=== PATIENT | female | born 1980 | race Caucasian/White ===

== ENCOUNTER 2017-02-17 20:16 | Emergency (ER) | payer BC ==
[2017-02-17 20:41] VITALS: BP 119/79
--- NOTE | 2017-02-17 21:10 | UC ---
Complaint Female HPI - HPI Summary HPI Summary: The patient comes in today for: 1. Lower back pain, dysuria: Onset: Yesterday. Palliative/provocative: Nothing makes the symptoms better or worse. Quality: Period cramps, aching of the lower back Region: Lower back pain. Severity: 7/10 Time: Constant. Associated symptoms: Fevers: None. Dysuria: "It just hurts to urinate." Urinary frequency: "a little." Urinary urgency: "I have this all the time--I had two kids." Unexpected vaginal discharge or bleeding: NOne. * - History Of Current Complaint Chief Complaint: UCGU Stated Complaint: URINARY Time Seen by Provider: 02/17/17 21:05 Hx Obtained From: Patient Hx Last Menstrual Period: 01/27/17 - Allergies/Home Medications Allergies/Adverse Reactions: Allergies Allergy/AdvReac Type Severity Reaction Status Date / Time No Known Allergies Allergy Verified 02/17/17 20:41 Home Medications: Home Medications NK [No Home Medications Reported] 02/17/17 [History Confirmed 02/17/17] PMH/Surg Hx/FS Hx/Imm Hx Previously Healthy: Yes - Surgical History Surgical History: None - Family History Known Family History: Positive: Hypertension Negative: Diabetes - Social History Occupation: Employed Full-time Alcohol Use: Weekly Alcohol Amount: weekends Substance Use Type: None Smoking Status (MU): Never Smoked Tobacco - Immunization History Most Recent Influenza Vaccination: Not the Season Review of Systems Constitutional: Negative Skin: Negative Eyes: Negative ENT: Negative Cardiovascular: Negative Gastrointestinal: Abdominal Pain Genitourinary: Dysuria All Other Systems Reviewed And Are Negative: Yes Physical Exam Triage Information Reviewed: Yes Appearance: Well-Appearing, Pain Distress - She sits favoring the right lower back/hip. However, she can more with no guarding or psychomotor slowing on the examination table. Vital Signs: Initial Vital Signs Temp 99.3 F 02/17/17 20:37 Pulse 74 02/17/17 20:37 Resp 02/17/17 20:37 BP 119/79 02/17/17 20:37 Pulse Ox 99 02/17/17 20:37 Vital Signs Reviewed: Yes Eyes: Positive: Conjunctiva Clear. Negative: Discharge ENT: Positive: Hearing grossly normal. Negative: Pharyngeal erythema, Nasal congestion, TM bulging, TM dull, TM red, Tonsillar swelling, Tonsillar exudate Dental: Negative: Gross Decay/Caries @, Dental Fracture @ Neck: Positive: Supple, Nontender, No Lymphadenopathy. Negative: Nuchal Rigidity Respiratory: Positive: Lungs clear, No respiratory distress, No accessory muscle use, Crackles, Wheezing Cardiovascular: Positive: RRR, No Murmur Abdomen Description: Positive: Nontender, No Organomegaly, Soft. Negative: CVA Tenderness (R), CVA Tenderness (L), Distended, Guarding Musculoskeletal: Positive: Strength Intact, ROM Intact, No Edema, Other: - She has not tenderness to palpation of the right or left paraspinal lumbar musculature. Neurological: Positive: Alert Psychological: Positive: Age Appropriate Behavior, Consolable. Negative: Normal Response To Family Skin: Negative: rashes, breakdown Complaint Female Dx - Course Course Of Treatment: Patient was told that I could not explain her lower back pain or lower urinary symptoms. She was told that figuring this out will take further investigation. She was told that we could do a pelvic exam. However, the patient stated that she only wanted to rule out a urinary tract infection. She did not want any more medical evaluation/testing to figure out what is the cause of her symptoms. - Differential Dx/Diagnosis Provider Diagnoses: lower back pain. Dysuria Discharge - Discharge Plan Condition: Stable Disposition: HOME Patient Education Materials: Low Back Strain (ED) Referrals: No Primary Care Phys,NOPCP [Primary Care Provider] - 1 Week (Please see your primary care provider as soon as you can for a repeat evaluation. If you get worse, please go to the ER. )
== END 2017-02-17 21:29 | disposition home or self-care (01) ==
LOC: UCCORT 20:16
DX: M54.5 Low back pain (principal); R30.0 Dysuria
CPT/HCPCS: 81003; 99211; G0463

== ENCOUNTER 2018-02-20 15:10 | Emergency (ER) | payer SELFPAY ==
--- NOTE | 2018-02-20 15:32 | UC ---
Complaint Female HPI - HPI Summary HPI Summary: 37 yo female presents with urinary urgency and cloudy urine since this morning. Later in the day today noticed willy blood in her urine. She does have a history of one kidney stone, but says that this feels nothing like that. Says that she has had a few UTIs in the past and her urine always gets bloody like this. No hx of cancer, hemolytic disease, or kidney issues. Denies fever, chills , abdominal pain, n/v/d/c, or vaginal symptoms. - History Of Current Complaint Hx Obtained From: Patient Hx Last Menstrual Period: 01/27/17 Onset/Duration: Sudden Onset Timing: Constant Severity Initially: Mild Severity Currently: Mild Pain Intensity: 4 Pain Scale Used: 0-10 Numeric <Mikey Billings - Last Filed: 02/20/18 15:53> <Jeff Vera - Last Filed: 02/20/18 16:40> - History Of Current Complaint Stated Complaint: URINARY Time Seen by Provider: 02/20/18 15:31 - Allergies/Home Medications Allergies/Adverse Reactions: Allergies Allergy/AdvReac Type Severity Reaction Status Date / Time No Known Allergies Allergy Verified 02/20/18 15:33 PMH/Surg Hx/FS Hx/Imm Hx - Additional Past Medical History Additional PMH: None Previously Healthy: Yes - Surgical History Surgical History: None - Family History Known Family History: Positive: Hypertension Negative: Diabetes - Social History Occupation: Employed Full-time Lives: With Family Alcohol Use: Weekly Alcohol Amount: weekends Substance Use Type: None Smoking Status (MU): Never Smoked Tobacco - Immunization History Most Recent Influenza Vaccination: Not the 2015/2016 Season <Mikey Billings - Last Filed: 02/20/18 15:53> Review of Systems Constitutional: Negative Skin: Negative Respiratory: Negative Cardiovascular: Negative Gastrointestinal: Negative Genitourinary: Dysuria, Hematuria, Urgency Neurovascular: Negative Neurological: Negative Psychological: Negative All Other Systems Reviewed And Are Negative: Yes <Mikey Billings - Last Filed: 02/20/18 15:53> Physical Exam - Summary Physical Exam Summary: GENERAL: NAD. WDWN. No pain distress. SKIN: No rashes, sores, lesions, or open wounds. NECK: Supple. Nontender. No lymphadenopathy. CHEST: CTAB. No r/r/w. No accessory muscle use. Breathing comfortably and in no distress. CV: RRR. Without m/r/g. Pulses intact. Brisk cap refill. ABDOMEN: Soft. NTTP. No distention or guarding. No organomegaly. No CVA tenderness. Bowel sounds present NEURO: Alert. CN II-XII grossly intact. PSYCH: Age appropriate behavior. Triage Information Reviewed: Yes Vital Signs: Vital Signs: Temp Pulse Resp BP Pulse Ox 99 F 68 14 126/85 100 02/20/18 15:33 02/20/18 15:33 02/20/18 15:33 02/20/18 15:33 02/20/18 15:33 Laboratory Tests 02/20/18 15:46 POC Urine Color Red A POC Urine Clarity Cloudy POC Urine pH 7.0 POC Ur Specif [place] 1.020 POC Urine Protein 3+ A POC Ur Glucose (UA) Negative POC Urine Ketones 1+ A POC Urine Blood 3+ A POC Urine Nitrite Positive A POC Urine Bilirubin 1+ A POC Urine Urobilinogen 1.0 POC U Leukocyte Esteras 2+ A Vital Signs Reviewed: Yes <Mikey Billings - Last Filed: 02/20/18 15:53> Vital Signs: Initial Vital Signs Temp 99 F 02/20/18 15:33 Pulse 68 02/20/18 15:33 Resp 14 02/20/18 15:33 BP 126/85 02/20/18 15:33 Pulse Ox 100 02/20/18 15:33 <Jeff Vera - Last Filed: 02/20/18 16:40> Complaint Female Dx - Course Course Of Treatment: UTI - Differential Dx/Diagnosis Provider Diagnoses: UTI <Mikey Billings - Last Filed: 02/20/18 15:53> Discharge - Sign-Out/Discharge Documenting (check all that apply): Discharge/Admit/Transfer - Billing Disposition and Condition Condition: STABLE Disposition: Home <Mikey Billings Last Filed: 02/20/18 15:53> - Billing Disposition and Condition Condition: STABLE Disposition: Home <Jeff Vera - Last Filed: 02/20/18 16:40> - Discharge Plan Condition: Stable Disposition: HOME Prescriptions: Fluconazole 150 MG (NF) [Diflucan 150 mg (NF)] 150 mg PO ONCE #1 tab Sulfamethox/Trimethoprim DS* [Bactrim DS 800/160 TAB*] 1 tab PO BID #14 tab Patient Education Materials: Urinary Tract Infection in Women (DC) Referrals: No Primary Care Phys,NOPCP [Primary Care Provider] - Additional Instructions: If you develop a fever, shortness of breath, chest pain, new or worsening symptoms - please call your PCP or go to the ED. Per institutional requirements, I have reviewed the chart, however, I was not consulted specifically or made aware of this patient by the above midlevel provider. I did not personally evaluate, interact with , or disposition this patient.
[2018-02-20 15:41] VITALS: BP 126/85
--- NOTE | 2018-02-23 07:19 | UC ---
- Progress Note Progress Note: urine culture + E.Coli Resistance to Bactrim please have the pt. stop Bactrim will ERX Cipro 2 x per day x 5 days Discharge - Sign-Out/Discharge Documenting (check all that apply): Discharge/Admit/Transfer - Discharge Plan Condition: Stable Disposition: HOME Prescriptions: Fluconazole 150 MG (NF) [Diflucan 150 mg (NF)] 150 mg PO ONCE #1 tab Sulfamethox/Trimethoprim DS* [Bactrim DS 800/160 TAB*] 1 tab PO BID #14 tab Patient Education Materials: Urinary Tract Infection in Women (DC) Referrals: No Primary Care Phys,NOPCP [Primary Care Provider] - Additional Instructions: If you develop a fever, shortness of breath, chest pain, new or worsening symptoms - please call your PCP or go to the ED. Per institutional requirements, I have reviewed the chart, however, I was not consulted specifically or made aware of this patient by the above midlevel provider. I did not personally evaluate, interact with , or disposition this patient. - Billing Disposition and Condition Condition: STABLE Disposition: Home
== END 2018-02-20 15:59 | disposition home or self-care (01) ==
LOC: UCCORT 15:10
DX: N39.0 Urinary tract infection, site not specified (principal); B96.20 Unspecified Escherichia coli [E. coli] as the cause of diseases classified elsewhere
CPT/HCPCS: 81003; 87077; 87086; 87186; 99212; G0463

== ENCOUNTER 2018-11-23 16:40 | Emergency (ER) | payer MEDICAID, OTHER ==
[2018-11-23 17:01] VITALS: BP 153/91
--- NOTE | 2018-11-23 17:21 | UC ---
Complaint Female HPI - HPI Summary HPI Summary: DYSURIA, URINARY FREQUENCY, URGENCY, HEMATURIA AND LOWER BACK PAIN STARTING TODAY. DENIES TAKING AZO. NO FEVER. - History Of Current Complaint Chief Complaint: UCGU Stated Complaint: URINARY COMPLAINT,LOW BACK ACHE Time Seen by Provider: 11/23/18 17:19 Hx Obtained From: Patient Hx Last Menstrual Period: 11/15/18 ?: No Onset/Duration: Sudden Onset, Lasting Hours Timing: Lasting Hours Severity Initially: Moderate Severity Currently: Moderate Pain Intensity: 6 Character: Burning Aggravating Factor(s): Urination Associated Signs And Symptoms: Positive: Back Pain - Allergies/Home Medications Allergies/Adverse Reactions: Allergies Allergy/AdvReac Type Severity Reaction Status Date / Time No Known Allergies Allergy Verified 11/23/18 16:57 PMH/Surg Hx/FS Hx/Imm Hx Previously Healthy: Yes - Surgical History Surgical History: None - Family History Known Family History: Positive: Hypertension Negative: Diabetes - Social History Alcohol Use: Weekly Alcohol Amount: weekends Substance Use Type: None Smoking Status (MU): Never Smoked Tobacco - Immunization History Most Recent Influenza Vaccination: Not the Season Review of Systems All Other Systems Reviewed And Are Negative: Yes Constitutional: Positive: Negative Skin: Positive: Negative Eyes: Positive: Negative ENT: Positive: Negative Respiratory: Positive: Negative Cardiovascular: Positive: Negative Gastrointestinal: Positive: Negative Genitourinary: Positive: Dysuria, Hematuria, Frequency, Urgency Motor: Positive: Negative Neurovascular: Positive: Negative Musculoskeletal: Positive: Negative Neurological: Positive: Negative Psychological: Positive: Negative Is Patient Immunocompromised?: No Physical Exam Triage Information Reviewed: Yes Appearance: Well-Appearing, Well-Nourished, Pain Distress Vital Signs: Initial Vital Signs Temp 98.9 F 11/23/18 16:58 Pulse 86 11/23/18 16:58 Resp 16 11/23/18 16:58 BP 153/91 11/23/18 16:58 Pulse Ox 100 11/23/18 16:58 Vital Signs Reviewed: Yes Eye Exam: Normal ENT Exam: Normal Dental Exam: Normal Neck exam: Normal Respiratory Exam: Normal Respiratory: Positive: Chest non-tender, Lungs clear, Normal breath sounds Cardiovascular Exam: Normal Cardiovascular: Positive: RRR, No Murmur, Pulses Normal Abdominal Exam: Normal Abdomen Description: Positive: Nontender, No Organomegaly, Soft, CVA Tenderness (R) - neg, CVA Tenderness (L) - neg Bowel Sounds: Positive: Present Musculoskeletal Exam: Normal Neurological Exam: Normal Psychological Exam: Normal Skin Exam: Normal Complaint Female Dx - Course Course Of Treatment: hx obtained, exam performed ,meds reviewed, urinalysis completed treated for UTI - Differential Dx/Diagnosis Differential Diagnosis/HQI/PQRI: Urinary Tract Infection Provider Diagnosis: UTI (urinary tract infection) Discharge - Sign-Out/Discharge Documenting (check all that apply): Patient Departure All imaging exams completed and their final reports reviewed: No Studies - Discharge Plan Condition: Stable Disposition: HOME Prescriptions: Fluconazole [Diflucan 150 MG (NF)] 150 mg PO ONCE #1 tab Nitrofurantoin Monohyd/M-Cryst [Macrobid 100 mg Capsule] 100 mg PO BID #14 cap Phenazopyridine TAB* [Pyridium 100 mg TAB*] 100 mg PO TID #3 tab Patient Education Materials: Urinary Tract Infection in Women (DC) Referrals: No Primary Care Phys,NOPCP [Primary Care Provider] - Additional Instructions: 1. increase fluid intake and get plenty of rest. 2. take the medication as prescribed. 3. Follow up as needed. - Billing Disposition and Condition Condition: STABLE Disposition: Home
--- NOTE | 2018-11-27 07:19 | UC ---
- Progress Note Progress Note: + UTI -E coli Sensitive to Macrobid no change kosta 11/27/18 Course/Dx - Diagnoses Provider Diagnoses: UTI (urinary tract infection) Discharge - Sign-Out/Discharge Documenting (check all that apply): Post-Discharge Follow Up All imaging exams completed and their final reports reviewed: No Studies - Discharge Plan Condition: Stable Disposition: HOME Prescriptions: Fluconazole [Diflucan 150 MG (NF)] 150 mg PO ONCE #1 tab Nitrofurantoin Monohyd/M-Cryst [Macrobid 100 mg Capsule] 100 mg PO BID #14 cap Phenazopyridine TAB* [Pyridium 100 mg TAB*] 100 mg PO TID #3 tab Patient Education Materials: Urinary Tract Infection in Women (DC) Referrals: No Primary Care Phys,NOPCP [Primary Care Provider] - Additional Instructions: 1. increase fluid intake and get plenty of rest. 2. take the medication as prescribed. 3. Follow up as needed. - Billing Disposition and Condition Condition: STABLE Disposition: Home
== END 2018-11-23 17:41 | disposition home or self-care (01) ==
LOC: UCCORT 16:40
DX: N39.0 Urinary tract infection, site not specified (principal)
CPT/HCPCS: 81003; 87077; 87086; 87186; 99212; G0463